=== PATIENT | female | born 1980 | race Two or more races ===

== ENCOUNTER 2024-12-08 20:16 | Emergency (ER) | payer MEDICAID, SELFPAY ==
[2024-12-08 20:17] VITALS: BMI 29.8
[2024-12-08 20:37] VITALS: BP 118/78; PULSE 94; RESP 18; TEMP 37.3; O2SAT 96
--- NOTE | 2024-12-08 20:56 | XR_ITS ---
Examination: PA lateral chest 2 views Technique: Upright PA lateral chest 2 views Exam date and time: December 08, 2024 2101 hrs. Indications: Coughing beginning one month ago. Findings: Normal heart size. Lungs are clear. The osseous structures are intact Impression: No active disease
--- NOTE | 2024-12-08 20:56 | PD.EDRME ---
Rapid Medical Screening Exam RME Arrival date/time: 12/08/24 20:16 44-year-old female presents emergency department complaining of cough and sore throat for 1 month. Chief Complaint: Dental/Oral/Throat Time Seen by Provider: 12/08/24 20:38 Vital signs: Vital Signs Temperature 99.1 F 12/08/24 20:37 Pulse Rate 94 12/08/24 20:37 Respiratory Rate 18 12/08/24 20:37 Blood Pressure 118/78 12/08/24 20:37 Pulse Oximetry (%) 96 12/08/24 20:37 Oxygen Delivery Method Room Air 12/08/24 20:37 Vital signs reviewed by provider: Yes
[2024-12-08 21:13] LABS: Strep A Rapid Negative (Negative)
--- NOTE | 2024-12-08 21:29 | PD.EDURI ---
Upper Respiratory Inf. RME/HPI General Chief Complaint: Dental/Oral/Throat Stated Complaint: COUGH X1 MONTH, CHEST, BACK AND THROAT PAIN Time Seen by Provider: 12/08/24 20:38 Source: patient Arrival date/time: 12/08/24 20:16 44-year-old female presents emergency department complaining of cough and sore throat for 1 month. Patient reports daughter currently has similar symptoms at home. Patient denies any fever, vomiting, diarrhea, or any other associated symptom. Mode of arrival: ambulatory Limitations: no limitations RME / HPI RME / HPI Narrative: 12/08/24 20:16 44-year-old female presents emergency department complaining of cough and sore throat for 1 month. Related Data Previous Rx's ?Medication ?Instructions ?Recorded acetaminophen 500 mg capsule 500 mg PO Q6H PRN pain #30 caps 12/08/24 benzonatate 100 mg capsule 100 mg PO BID PRN cough #20 caps 12/08/24 ibuprofen 600 mg tablet 600 mg PO Q8H PRN pain #20 tabs 12/08/24 Allergies Allergy/AdvReac Type Severity Reaction Status Date / Time No Known Allergies Allergy Unverified 06/14/18 08:42 Review of Systems Review of Systems Systems Reviewed: All systems reviewed, normal except as documented Constitutional Constitutional: Reports system reviewed and no additional complaints, except as documented, Denies body ache(s), Denies chills and Denies fever(s) Eyes Eyes: Reports system reviewed and no additional complaints, except as documented and Denies change in vision ENT Ears, Nose, Mouth, and Throat: Reports system reviewed and no additional complaints, except as documented, Denies disequilibrium, Denies dizziness, Reports sore throat and Denies vertigo Cardiovascular Cardiovascular: Reports system reviewed and no additional complaints, except as documented, Denies chest pain and Denies dyspnea Respiratory Respiratory: Reports system reviewed and no additional complaints, except as documented, Denies chest congestion, Reports cough and Denies dyspnea Gastrointestinal Gastrointestinal: Reports system reviewed and no additional complaints, except as documented, Denies abdominal pain, Denies nausea and Denies vomiting Musculoskeletal Musculoskeletal: Reports system reviewed and no additional complaints, except as documented, Denies abnormal gait and Denies arthralgias Integumentary/Breasts Skin/Breast: Reports system reviewed and no additional complaints, except as documented, Denies erythema, Denies rash and Denies wounds Neurologic Neurologic: Reports system reviewed and no additional complaints, except as documented, Denies abnormal gait, Denies disequilibrium, Denies dizziness and Denies vertigo Past Medical History Past Medical History NEUROLOGIC: Negative Neurological Disorders or Seizures CARDIAC: Negative Cardiac Disorders or Congestive Heart Failure RESPIRATORY: Negative Chronic Obstructive Pulmonary Disease (COPD) GASTROINTESTINAL: Negative Gastrointestinal Disorders GENITOURINARY: Positive Genitourinary Disorders (USI); Negative Renal Disease REPRODUCTIVE: Negative Pelvic Inflammatory Disease MUSCULOSKELETAL: Negative Musculoskeletal Disorders ENDOCRINE: Negative Endocrine Disorders, Diabetes Mellitus Type 1 or Diabetes Mellitus Type 2 HEMATOLOGIC: Negative Blood Disorders OTHER HISTORY: Negative Autoimmune Disease, Blood Transfusions or Anesthesia Reactions Surgical History SURGICAL: Positive Tubal Ligation Social History SMOKING STATUS: Never smoker ED Exam General Limitations: Present no limitations General appearance: Present alert and in no apparent distress Head Head exam: Present atraumatic Eye Eye exam: Present normal appearance, PERRL and EOMI ENT ENT exam: Present normal exam, normal oropharynx and mucous membranes moist Neck Neck exam: Present normal inspection, full ROM and trachea midline Chest Chest inspection: Present normal inspection and symmetric chest wall rise Respiratory Respiratory exam: Present normal lung sounds bilaterally Cardiovascular Cardiovascular exam: Present regular rate, normal rhythm and normal heart sounds Abdominal Exam Abdominal exam: Present soft and normal bowel sounds Extremities Exam Extremities exam: Present normal inspection and full ROM Back Exam Back exam: Present normal inspection and full ROM Neurological Exam Neurological exam: Present alert, oriented X3 and CN II-XII intact Psychiatric Psychiatric exam: Present normal affect and normal mood Skin Skin exam: Present warm, dry, intact and normal color Course Quality Measures none Orders Category Date Time Status Bedside Influenza A&B Antigen Test NOW Care 12/08/24 20:56 Completed XR chest 2V Stat Exams 12/08/24 20:56 Completed Strep A Rapid Stat Lab 12/08/24 20:58 Completed Acetaminophen Tab [Tylenol ES Tab] Med 12/08/24 20:56 Discontinued 1,000 mg PO X1 ONE Vital Signs Vital signs: Vital Signs Temperature 99.1 F 12/08/24 20:37 Pulse Rate 94 12/08/24 20:37 Respiratory Rate 18 12/08/24 20:37 Blood Pressure 118/78 12/08/24 20:37 Pulse Oximetry (%) 96 12/08/24 20:37 Oxygen Delivery Method Room Air 12/08/24 20:37 96% room air within normal limits Upper Respiratory Infection MDM Narrative MDM Narrative:: 44-year-old female presents emergency department complaining of cough and sore throat for 1 month. Patient reports daughter currently has similar symptoms at home. Patient denies any fever, vomiting, diarrhea, or any other associated symptom. ENT exam was unremarkable with negative strep swab. Chest x-ray was unremarkable for any pneumonic infiltrates. Patient likely has viral infection as daughter tested positive for influenza. Patient data External records reviewed:: [facility] previous records Clinical information provided by:: patient Social determinants that could affect healthcare access:: none Patient has the following chronic illnesses:: None How is presenting disease/condition affected by chronic disease/condition?: no chronic disease Evaluation data The following diagnostics were reviewed and interpreted by me:: lab results and radiology exam(s) Lab and/or radiology exams considered but not ordered:: Ordered Interpretation Summary: Interpreted by me Medications / Prescriptions Medications or Prescriptions considered but not ordered:: Ordered Medication administrations:: Medication Administration History Discontinued Medications Acetaminophen (Acetaminophen 500 Mg Tablet) 1,000 mg PO X1 ONE Stop: 12/08/24 20:57 Last Admin: 12/08/24 21:56 Dose: 1,000 mg Documented By: EO Given Consultations Consultation(s) initiated? (list below): No Diagnosis Upper Respiratory Differential Diagnosis: upper respiratory infection, otitis media, sinusitis, viral infection, bronchitis, influenza and pharyngitis Most likely diagnosis given after review of the tests above:: Viral infection Admission Indicated Admission indicated?: not indicated Admission Request Was there a request for admission?: No Disposition Plan Disposition Plan: Discharge Discharge Attestation Discharge Attestation: The patient and all family members were given an opportunity to ask questions and understood the discharge instructions. Discharge instructions specifically effects, indications for sooner follow up or return to the emergency department, and the expected course of current diagnosis. Patient condition: Stable Discharge Plan Plan Patient Disposition: HOME (Self Care) Disposition Comment: Stable Prescriptions/Referrals Prescriptions/Med Rec: New benzonatate 100 mg capsule 100 mg PO BID PRN (Reason: cough) Qty: 20 0RF ibuprofen 600 mg tablet 600 mg PO Q8H PRN (Reason: pain) Qty: 20 0RF acetaminophen 500 mg capsule 500 mg PO Q6H PRN (Reason: pain) Qty: 30 0RF Problem List Clinical Impression: Viral infection Patient/Caregiver Discharge Instructions Discharge Activity: activity as tolerated Education Materials: ED Viral Syndrome (Adult) Additional Instructions: Drink plenty of fluids and get plenty of rest. Take Tylenol or ibuprofen as needed for fever or pain. Take Tessalon Perles as needed for cough. Follow-up with primary care provider in 2 to 3 days. You likely have influenza even though you tested negative due to your daughter tested positive for flu. Return to emergency department for any worsening symptoms or as needed. Print Language: Setswana Stand Alone Forms: Denise Award Info., Patient Portal Info Letter PA/DIGITAL OPERATIONS ANALYST Supervising Physician PA/DIGITAL OPERATIONS ANALYST Supervising Physician: Dr. Pickering
[2024-12-08] MEDS: ACETAMINOPHEN 500 MG TABLET 1000 MG PO (21:56)
== END 2024-12-08 21:59 | disposition home or self-care (01) ==
LOC: SERX 21:40
PROVIDERS: Emergency Provider Emergency Medicine; PCP Physician Assistant
DX: B34.9 Viral infection, unspecified (principal)
CPT/HCPCS: 71046; 87400; 87651; 99283; A9270